=== PATIENT | male | born 1945 | race African-American/Black ===

== ENCOUNTER 2017-11-18 09:50 | Outpatient (CLI) | payer MEDICARE ==
--- NOTE | 2017-11-18 11:09 | ULT ---
ABDOMINAL AORTIC ULTRASOND: TECHNIQUE: Pfeiffer scale and Doppler flow imaging with spectral analysis performed. CLINICAL HISTORY: Abdominal aortic aneurysm, followup. COMPARISON: Reference is made to a prior study, 09/21/16 from [facility] (aortic screening ultrasound exam). FINDINGS: The previously demonstrated 3.8 cm proximal aortic aneurysm is not well defined on the basis of this exam. There is persistent shadowing of the proximal aortic region, which does limit assessment. Wit hin the remaining imaged portions of the abdominal aorta, there is no discrete aneurysm demonstrated. IMPRESSION: Limited exam. Proximal aorta at site of previously documented aneurysm is obscured by persistent are as of shadowing, thus limiting assessment. Recommend followup surveillance with CT imaging to more r eliably characterize. POS: ANTOINETTE
== END 2017-11-18 09:51 | disposition home or self-care (01) ==
LOC: ULT 09:50
PROVIDERS: ATTEND Family Medicine
DX: I71.4 Abdominal aortic aneurysm, without rupture (principal)
CPT/HCPCS: 76775

== ENCOUNTER 2017-11-28 08:41 | Outpatient (CLI) | payer MEDICARE, MEDICAID ==
[2017-11-28] MEDS ORDERED: Iopamidol 370 76% 100 ML VIAL ONE (14:35)
== END 2017-11-28 08:42 | disposition home or self-care (01) ==
LOC: BICCT 08:41
PROVIDERS: ATTEND Family Medicine
DX: I71.4 Abdominal aortic aneurysm, without rupture (principal); R91.8 Other nonspecific abnormal finding of lung field
CPT/HCPCS: 74174

== ENCOUNTER 2021-12-01 11:07 | Outpatient (CLI) | payer MEDICARE, MEDICAID ==
[2021-12-01 12:07] LABS: Hemoglobin 12.1 g/dL (13.5-17.5); Mean Corpuscular HGB CONC 32.6 g/dL (32.0-36.0); Mean Corpuscular Hemoglobin 28.4 pg (27.0-33.0); Mean Corpuscular Volume 87.1 fl (81.2-95.1); Mean Platelet Volume 9.4 fl (7.4-10.4); Platelet Count 201 10x3/uL (150-450); RBC Distribution Width 13.9 % (11.5-14.5); Red Blood Cell (RBC) Count 4.26 10x6/uL (4.32-5.72); White Blood Cell (WBC) Count 4.3 10x3/uL (3.5-10.5)
[2021-12-01 12:21] LABS: Anion Gap 13 mmol/L (10-20); BUN (Urea Nitrogen) 19 mg/dL (8.4-25.7); Calc. Creatinine Clearance 0 mL/min (70-130); Calcium 9.2 mg/dL (7.8-10.44); Carbon Dioxide 26 mmol/L (23-31); Chloride 106 mmol/L (98-107); Glucose 88 mg/dL (83-110); Sodium 141 mmol/L (136-145)
[2021-12-01 21:14] LABS: SARS-CoV-2 PCR by NAA Not Detected (NotDetected)
== END 2021-12-01 11:08 | disposition home or self-care (01) ==
LOC: LABBT 11:07
PROVIDERS: ATTEND Thoracic Surgery (Cardiothoracic Vascular Surgery)
DX: Z01.812 Encounter for preprocedural laboratory examination (principal); I73.9 Peripheral vascular disease, unspecified; Z20.822 Contact with and (suspected) exposure to COVID-19
CPT/HCPCS: 80048; 85027; U0003; U0005

== ENCOUNTER 2021-12-04 06:06 | Day surgery (SDC) | payer MEDICARE, MEDICAID ==
[2021-12-02 13:32] VITALS: BMI 19.6
[2021-12-04] MEDS ORDERED: Heparin 10,000 UNITS/ 10 ML VIAL ONE (12:15)
[2021-12-04] MEDS ORDERED: Fentanyl 100 MCG/2 ML VIAL ONE (13:18)
[2021-12-04] MEDS ORDERED: Clopidogrel Bisulfate 75 MG TAB ONE (13:35)
[2021-12-04] MEDS ORDERED: Iopamidol 370 76% 100 ML VIAL ONE (14:00)
== END 2021-12-04 18:30 | disposition home or self-care (01) ==
LOC: SDC 06:06
PROVIDERS: ATTEND Thoracic Surgery (Cardiothoracic Vascular Surgery)
PROC: 047K3D1 Dilation of Right Femoral Artery with Intraluminal Device, using Drug-Coated Balloon, Percutaneous Approach (ICD-10-PCS; principal; 2021-12-04)
DX: I70.221 Atherosclerosis of native arteries of extremities with rest pain, right leg (principal); E78.2 Mixed hyperlipidemia; N40.0 Benign prostatic hyperplasia without lower urinary tract symptoms; M19.90 Unspecified osteoarthritis, unspecified site; Z87.891 Personal history of nicotine dependence; Z79.82 Long term (current) use of aspirin; Z79.899 Other long term (current) drug therapy
CPT/HCPCS: 36140; 36247; 37226; 85347; C1725 ×2; C1887; C2623; J1644; J3010; Q9967